=== PATIENT | female | born 1970 | race Hispanic/Latino ===

== ENCOUNTER 2017-11-05 11:15 | Outpatient (CLI) | payer BC ==
--- NOTE | 2017-11-05 15:25 | Mammography Report ---
Screening dale mammogram and 2-D mammography: MLO and CC 2-D mammogram is compared to the patient's prior exam in August 2015. In the upper outer left breast there is a focal nodular area measuring about 13 mm in size there is not identified on the prior exam. The breast pattern otherwise is heterogeneous, symmetric, and generally unremarkable. Dale mammogram of the right breast is unremarkable. Images of the left breast however do confirm the asymmetric density. The margins appear generally sharp and it is better visualized in the lateral images than in the CC projection. CAD used. Impression: Left breast asymmetry. Recommendation: Left breast ultrasound. BI-RADS CATEGORY: 0 = Needs additional imaging evaluation ACR BI-RADS MAMMOGRAPHIC CODES: 0 = Needs additional imaging evaluation; 1 = Negative; 2 = Benign; 3 = Probably benign; 4 = Suspicious; 5 = Malignant; 6 = Known biopsy-proven malignancy COMMENT: 1. Dense breast tissue, i.e., adenosis, fibrocystic changes, etc., may obscure an underlying neoplasm. 2. Approximately 10% of cancers are not detected with mammography. 3. A negative mammography report should not delay biopsy if a clinically suspicious mass is present.
== END 2017-11-05 11:16 | disposition home or self-care (01) ==
LOC: MAMMO 11:15
DX: Z12.31 Encounter for screening mammogram for malignant neoplasm of breast (principal)
CPT/HCPCS: 77063; 77067

== ENCOUNTER 2017-11-09 11:00 | Outpatient (CLI) | payer BC ==
--- NOTE | 2017-11-11 13:13 | Ultrasound Report ---
Left breast ultrasound: The left asymmetry of recent mammography. Imaging of the breast in the 2:00 location approximately 11 cm from the nipple demonstrates partially circumscribed 14 mm in length hypoechoic nodule. It is somewhat elongated parallel to the skin. There is a thin echogenic density in the central portion. This is consistent in size and location with the mammographic finding. Impression: Indeterminate left nodule. Recommendation: Ultrasound-guided biopsy. BI-RADS CATEGORY: 4 = Suspicious ACR BI-RADS MAMMOGRAPHIC CODES: 0 = Needs additional imaging evaluation; 1 = Negative; 2 = Benign; 3 = Probably benign; 4 = Suspicious; 5 = Malignant; 6 = Known biopsy-proven malignancy COMMENT: 1. Dense breast tissue, i.e., adenosis, fibrocystic changes, etc., may obscure an underlying neoplasm. 2. Approximately 10% of cancers are not detected with mammography. 3. A negative mammography report should not delay biopsy if a clinically suspicious mass is present.
== END 2017-11-09 11:01 | disposition home or self-care (01) ==
LOC: US 11:00
PROVIDERS: ATTEND Internal Medicine
DX: N63.20 Unspecified lump in the left breast, unspecified quadrant (principal); R92.2 Inconclusive mammogram

== ENCOUNTER 2017-11-25 08:08 | Outpatient (CLI) | payer BC ==
[2017-11-25] MEDS ORDERED: XYLOCAINE 1% 20 mL ONE (08:34)
[2017-11-25] MEDS ORDERED: XYLOCAINE 1% MPF 5 mL INFILTRATI NR (08:37)
--- NOTE | 2017-11-25 12:05 | Mammography Report ---
Ultrasound-guided left breast biopsy, clip placement, and postbiopsy mammogram: There is an elongated hypoechoic nodule in the lateral breast at 2:00 measuring 16.4 mm in greatest dimension. The skin was cleansed and 1% lidocaine used for local anesthesia. A 13-gauge guide was positioned through which a 14-gauge disposable Bard biopsy spring-loaded gun was used to take several sections through the lesion under ultrasound guidance. A marker was left in place. Following bandaging two-view mammogram confirm positioning of marker in the lateral breast were nodule area was noted however does not correspond to the nodular density is seen in the lateral projection. Whole breast ultrasound was again performed but no other significant findings are noted to correspond to the mammographic finding. The patient was placed on the stereotactic table but this lesion could not be clearly seen on the lateral images. Impressions: Discordant biopsy with mammogram findings. The mammographic finding cannot be unequivocally located by mammography or ultrasound. The mammographic findings have a rather low suspicion for malignancy. Recommendation: Pending pathology results of current biopsy repeat tomomammogram in 6 months to reevaluate mammogram finding. This has been discussed with the patient.
--- NOTE | 2017-11-25 16:30 | History and Physical Report ---
History of Present Illness Date of examination: 11/25/17 Chief complaint: mammogram/us abn. lt breast History of present illness: recent Medications and Allergies Allergies Allergy/AdvReac Type Severity Reaction Status Date / Time No Known Allergies Allergy Unverified 07/20/14 11:57
--- NOTE | 2017-11-25 16:32 | Procedure Note ---
Date of procedure: 11/25/17 Pre-op diagnosis: lt. breast lesion Post-op diagnosis: same Procedure: u/s guided lt. breast bx Findings: solid tissue Anesthesia: local Surgeon: BLOSSOM POWERS Estimated blood loss: none Pathology: list (lt. breast tissue) Specimen disposition: to lab Condition: stable Disposition: same day
== END 2017-11-25 08:09 | disposition home or self-care (01) ==
LOC: US 08:08
DX: R92.8 Other abnormal and inconclusive findings on diagnostic imaging of breast (principal)
CPT/HCPCS: 88305

== ENCOUNTER 2017-11-27 10:42 | Outpatient (CLI) | payer BC ==
--- NOTE | 2017-11-30 09:13 | Magnetic Resonance Report ---
BILATERAL BREAST MRI WITHOUT AND WITH CONTRAST: 11/27/17 10:42:00 CLINICAL: Left mammographic asymmetry. Status post benign left ultrasound guided needle biopsy 11/25/17. The post biopsy mammogram showed discordance with the mammographic asymmetry. COMPARISON:11/05/17 screening digital breast tomosynthesis (DBT) and 11/09/17. TECHNIQUE: Axial 1.0-mm T1 without, axial high resolution 2.0-mm T2 and axial 1.0-mm dynamic Vibrant high-resolution postcontrast T1 fat saturation sequences on a 1.5 Karen magnet. The examination was performed with an 8 channel dedicated [employer] breast coil. Post processing with CAD and subtraction was performed on an [employer] workstation. 20 cc of Multihance was injected without incident for the contrast portion of the exam. Consent was obtained prior to the administration of the contrast. FINDINGS: Right: Minimal background parenchymal enhancement. No mass or suspicious enhancement. No suspicious lymph nodes. Left: Minimal background parenchymal enhancement. An oval irregular nonenhancing posterior mass far posterior near the pectoral muscle at 8:30-9 o'clock approximately 15 cm from the nipple measures 2.4 x 1.0 x 1.3 cm and correlates with the recently evaluated mammographic asymmetry. It has uniform signal hyperintense relative to fat on T1 and hypointense to fat on T2. Margins are slightly irregular. Two additional central masses with similar morphology and signal characteristics are identified. A 1.5 x 0.5 cm central mass approximately 8 cm from the nipple and an 8 x 5 mm central mass approximately 12 cm from the nipple. No suspicious mass or suspicious enhancement. No suspicious lymph nodes. IMPRESSION: 1. Three nonenhancing benign masses of the left breast. The largest mass at 8:30-9 o'clock approximately 15 cm correlates with the recently evaluated mammographic asymmetry. 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 2. No suspicious lesion of either breast. 3. No suspicious lymph nodes. 4. Recommend routine mammographic screening. BI-RADS 2 -- Benign
== END 2017-11-27 10:43 | disposition home or self-care (01) ==
LOC: SPVIMAG 10:42
DX: N63.20 Unspecified lump in the left breast, unspecified quadrant (principal); N64.89 Other specified disorders of breast
CPT/HCPCS: A9577; C8908; 77059